=== PATIENT | female | born 2000 | race Two or more races ===

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

== ENCOUNTER 2021-10-15 19:29 | Emergency (ER) | payer OTHER ==
[~2021-10-15] VITALS: Ht 157.5 cm; Wt 63.6 kg
[2021-10-15 21:00] VITALS: BP 116/70
== END 2021-10-15 22:43 | disposition home or self-care (01) ==
LOC: M ED 19:29
DX: M79.602 Pain in left arm (principal); V47.5XXA Car driver injured in collision with fixed or stationary object in traffic accident, initial encounter; Y92.411 Interstate highway as the place of occurrence of the external cause; Y93.I9 Activity, other involving external motion; Y99.1 Military activity

== ENCOUNTER 2022-06-21 02:04 | Emergency (ER) | payer OTHER ==
[~2022-06-21] VITALS: Ht 157.5 cm; Wt 63.6 kg
[2022-06-21 02:04] VITALS: BP 112/71
== END 2022-06-21 02:21 | disposition left against medical advice (07) ==
LOC: M ED 02:04
DX: Z53.21 Procedure and treatment not carried out due to patient leaving prior to being seen by health care provider (principal)